=== PATIENT | male | born 1980 | race Two or more races ===

== ENCOUNTER 2024-03-28 08:10 | Day surgery (SDC) | payer MEDICAID, SELFPAY ==
[2024-03-27 14:52] VITALS: BMI 42.7
[2024-03-28] VITALS (8 sets, daily range): BP systolic 127–157; BP diastolic 84–104; PULSE 73–98; RESP 11–22; TEMP 36.3–36.6; O2SAT 95–100; BMI 40.8
[2024-03-28] MEDS: MIDAZOLAM INJ 1 MG/ML VIAL 2 ML (ASD USE ONLY) 2 MG IV (09:58)
[2024-03-28] MEDS: DiphenhydrAMINE INJ 50 MG/ML VIAL 25 MG IV (09:58)
[2024-03-28] MEDS: fentaNYL CIT INJ 50 mCg/ML AMP 2ML (ASD USE ONLY) IV (09:58)
--- NOTE | 2024-03-28 10:35 | SUR.PHASEII ---
PT'S FAMILY MEMBER DID NOT ANSWER THE PHONE TO STATE EPIDEMIOLOGIST THE PATIENT. WILL TRY AGAIN LATER
== END 2024-03-28 11:18 | disposition home or self-care (01) ==
PROVIDERS: PCP Family Medicine; Referring Provider Surgery; Visit Provider Surgery
PROC: 0DBE8ZX Excision of Large Intestine, Via Natural or Artificial Opening Endoscopic, Diagnostic (ICD-10-PCS; CPT 45380; principal; 2024-03-28 09:15)
DX: K57.31 Diverticulosis of large intestine without perforation or abscess with bleeding (principal)
CPT/HCPCS: 45378; J1200; J2250; J3010

== ENCOUNTER 2024-04-15 15:16 | Outpatient (AMB) | payer MEDICAID, SELFPAY ==
--- NOTE | 2024-04-15 14:58 | GSCOFFNT_ITS ---
Med/Allergies Allergies & Medications Allergies codeine Allergy (Mild, Verified 04/15/24 14:58) Rash Medication Reconciliation sitagliptin phosphate 50 mg-metformin 1,000 mg tablet (Janumet) 1 tab PO BID 01/21/21 [History Confirmed 04/15/24] losartan 50 mg tablet 25 mg PO QDAY 07/24/23 [History Confirmed 04/15/24] ascorbic acid (vitamin C) 1,000 mg tablet (Vitamin C) 1,000 mg PO QDAY 03/28/24 [History Confirmed 04/15/24] cholecalciferol (vitamin D3) 50 mcg (2,000 unit) capsule (Vitamin D3) 50 mcg PO QDAY 03/28/24 [History Confirmed 04/15/24] magnesium 250 mg tablet 250 mg PO QDAY 03/28/24 [History Confirmed 04/15/24] omeprazole 40 mg capsule,delayed release 40 mg PO QAMAC 03/28/24 [History Confirmed 04/15/24] pioglitazone 30 mg tablet 30 mg PO QDAY 03/28/24 [History Confirmed 04/15/24] zinc 50 mg tablet 50 mg PO QDAY 03/28/24 [History Confirmed 04/15/24] MA Intake Visit Data Collection New Patient or Established: Established Patient (seen at [facility] within 3 years) Seen by Clinical Staff ONLY (RN/MA): No Reason for Visit:: COLON RESULTS Pain Present Currently: No Pain scale:: 0 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 PCP or OBGYN visit in last 3 months: Yes Hx Now: No Do You Feel Safe at Home: Yes Authorities Contacted: N/A Smoking Status Smoking Status: Never smoker For Telemed visit only Telemed Video/Phone Visit: Yes Verbal consent obtained for Telemed visit?: Yes Immunization / Flu Flu Vaccine in the Last 12 Months: No Flu Vaccine Exclusion Criteria: No Exclusion Criteria Past Medical History Past Medical History NEUROLOGIC: Positive Neurological Disorders and Alfred's Palsy (2006); Negative Seizures CARDIAC: Positive Cardiac Disorders, Hypercholesterolemia and Hypertension; Negative Congestive Heart Failure, Edema or Cellulitis RESPIRATORY: Positive Sleep Apnea (DOESNT USE CPAP); Negative Chronic Obstructive Pulmonary Disease (COPD) GASTROINTESTINAL: Positive Gastrointestinal Disorders, Hepatitis (HEP A), Gall Bladder Disease, Gastroesophageal Reflux Disease and Obesity GENITOURINARY: Negative Genitourinary Disorders, Renal Disease or Kidney Stones MUSCULOSKELETAL: Positive Arthritis (RIGHT HIP) and Scoliosis ENDOCRINE: Positive Endocrine Disorders and Diabetes Mellitus Type 2; Negative Diabetes Mellitus Type 1 HEMATOLOGIC: Negative Blood Disorders OTHER HISTORY: Positive Chicken Pox; Negative Hospitalization, Autoimmune Disease, Shingles, Falls, Blood Transfusions, Anesthesia Reactions, Chemotherapy, Radiation Therapy, MRSA, Measles, Mumps or Cancer Family History FAMILY HISTORY: Positive Family Cardiac Disorders (MOTHER (CAD,HIGH CHOLESTEROL), FATHER (HTN)), Family Cancer (UNCLE - COLON CA) and Family Surgery (MOTHER, FATHER); Negative Family Psychiatric Problems, Family Respiratory Disorders, Family Gastrointestinal Problems or Family Anesthesia Reaction Surgical History SURGICAL: Negative Cardiac Surgery, Pacemaker, Endocrine Surgery, Neurologic Surgery or Vasectomy Social History SMOKING STATUS: Smoking status: Never smoker ALCOHOL: Alcohol Intake: Never HOUSING: Housing: House HPI HPI Narrative 43M with HTN, DMII, GERD, history of H. pylori who presented for diagnostic colonoscopy due to changes in bowel habits, who requested a phone visit for follow up. Pt reports feeling well overall, has no concerns after colonoscopy but does have episodes of upper abdominal discomfort which is chronic ROS Review of Systems Systems Reviewed: All systems reviewed, normal except as documented Objective/Exam General Limitations: other (limited by telephone visit) Results Colonoscopy report reviewed Assessment & Plan Diagnosis / Problem List (1) Encounter to discuss colonoscopy results: Status: Acute Assessment & Plan: 43M with HTN, DMII, GERD, history of H. pylori who presented for diagnostic colonoscopy due to changes in bowel habits, with findings of diverticulosis but otherwise normal. I encouraged pt to increase his water intake and initiate metamucil fiber, and to follow up with his PCP for consideration of EGD to evaluate his upper abdominal pain. All questions were answered and pt expressed understanding Office Procedures GNS Level of Care Nursing/Assessment Patient Status: Established Patient Nursing Assessment/Reassesment: Medication Reconciliation, Update PMH in EMR and Vital Signs Coordination of Care: Complex Care and Chronic Disease 1-5, Consent,records obtained, informed consent, Education Simp Pt/Fam, Results/Orders obtained and Staff clarify orders Established Patient Charge Established Patient Point Assignment: 90 Telehealth Telemed Phone/Video with patient at home & ,PA,SOFTWARE QUALITY ASSURANCE SPECIALIST: Yes Patient Portal Questionaires Social History Living Situation History Housing: House Tobacco History Smoking Status: Never smoker Alcohol History Alcohol Intake: Never Domestic Abuse History Do You Feel Safe at Home: Yes Review of Systems Report any current symptoms Only answer those that you have currently: Past Medical History Past Medical History Have you ever been diagnosed with any of the following: Neurological Problems Seizures: No Alfred's Palsy: Yes (2005) Cardiology Problems Hypercholesterolemia: Yes Congestive Heart Failure: No Edema: No Cellulitis: No Hypertension: Yes Respiratory Problems Chronic Obstructive Pulmonary Disease (COPD): No Sleep Apnea: Yes (DOESNT USE CPAP) Stomache/Intestinal Problems Hepatitis: Yes (HEP A) Gall Bladder Disease: Yes Gastroesophageal Reflux Disease: Yes Obesity: Yes Genital/Urinary Problems Renal Disease: No Kidney Stones: No Musculoskeletal Problems Arthritis: Yes (RIGHT HIP) Scoliosis: Yes Endocrine Problems Diabetes Mellitus Type 1: No Diabetes Mellitus Type 2: Yes Other Problems Hospitalization: No Autoimmune Disease: No Shingles: No Falls: No Blood Transfusions: No Anesthesia Reactions: No Chemotherapy: No Radiation Therapy: No MRSA: No Chicken Pox: Yes Measles: No Mumps: No Cancer: No Surgical History Pacemaker: No
== END 2024-04-15 15:21 | disposition home or self-care (01) ==
LOC: HODSRG 15:16
PROVIDERS: PCP Physician Assistant; Referring Provider Physician Assistant; Supervising Provider Surgery; Visit Provider Surgery
DX: Z71.2 Person consulting for explanation of examination or test findings (principal); K57.90 Diverticulosis of intestine, part unspecified, without perforation or abscess without bleeding
CPT/HCPCS: 99212; G0463

== ENCOUNTER 2024-06-01 09:14 | Emergency (ER) | payer MEDICAID, SELFPAY ==
[2024-06-01 09:40] VITALS: BP 169/117; BP 174/115; PULSE 84; RESP 18; TEMP 36.6; O2SAT 97; BMI 40.5
--- NOTE | 2024-06-01 09:47 | XR_ITS ---
Examination: CT abdomen with intravenous contrast CT pelvis with intravenous contrast 2-D coronal reconstructions 2-D sagittal reconstructions Date and time of exam:June 01, 2024 at 1123 hrs. Indications: Right upper abdominal pain today. CTDI: vol (mGy) 11.5 DLP: (mGycm) . 738 Technique: Multiple axial sections of the abdomen and pelvis have been obtained. 64 slice high-resolution scanner used. 3 mm axial sections have been obtained, post intravenous injection 60 cc [id number] 2-D sagittal, coronal reconstructions obtained. Low dose protocols were performed. One or more of the following dose reduction techniques were used; automated exposure control, adjustment of the mA and/or KV according to patient size, use of iterative reconstruction technique. Findings: Fatty infiltration throughout the liver No pancreatic splenic or adrenal mass lesion Edema involving the right kidney with no ureteral calculi most consistent with pyelonephritis No bowel obstruction Normal appendix Aorta normal size No bowel obstruction Impression: Findings most consistent with acute right pyelonephritis
--- NOTE | 2024-06-01 09:48 | PD.EDRME ---
Rapid Medical Screening Exam RME Arrival date/time: 06/01/24 09:14 43-year-old male presents to the emergency department with complaints of right lower quadrant pain that began this a.m. I have greeted and performed a focused initial assessment of this patient. Initial appropriate labs ordered at this time. A comprehensive ED assessment and evaluation of the patient and analysis of all test and completion of medical decision making process will be conducted by additional ED provider. Chief Complaint: Abdominal Pain Time Seen by Provider: 06/01/24 09:47 Vital signs: Vital Signs Temperature 97.9 F 06/01/24 09:40 Pulse Rate 84 06/01/24 09:40 Respiratory Rate 18 06/01/24 09:40 Blood Pressure 174/115 H 06/01/24 09:40 Pulse Oximetry (%) 97 06/01/24 09:40 Oxygen Delivery Method Room Air 06/01/24 09:40
[2024-06-01] MEDS: ACETAMINOPHEN 500 MG TABLET 1000 MG PO (09:52)
[2024-06-01 10:25] LABS: Collection Type, Urine Clean Catch
[2024-06-01 10:34] LABS: Basophils # (Auto) 0.1 Thou/mm3 (0.0-0.2); Basophils % (Auto) 1 % (0-2.5); Eosinophils # (Auto) 0.2 Thou/mm3 (0.0-0.5); Eosinophils % (Auto) 2 % (0-10); Hematocrit 53.8 % (41.0-53.0); Hemoglobin 18.3 g/dL (13.5-16.0); Immature Granulocytes % (Auto) 1 % (0-0); Lymphocytes # (Auto) 2.3 Thou/mm3 (1.0-4.8); Lymphocytes % (Auto) 25 % (10-50); Mean Corpuscular Hemoglobin 27.9 pg (25.0-35.0); Mean Corpuscular Volume 82 fL (80-100); Monocytes # (Auto) 0.7 Thou/mm3 (0.0-0.8); Monocytes % (Auto) 8 % (0-12); Neutrophils # (Auto) 5.6 Thou/mm3 (1.8-7.7); Neutrophils % (Auto) 62 % (37-80); Nucleated Red Blood Cell % 0 /100 WBC (0); Platelet Count 204 Thou/mm3 (140-440); RDW Standard Deviation 38.6 fL (35.1-43.9); Red Blood Count 6.56 Miln/mm3 (4.50-5.90); White Blood Count 8.9 Thou/mm3 (3.8-10.6)
[2024-06-01 10:43] LABS: Bilirubin,Urine Negative (Negative); Blood,Urine 1+ (Negative); Clarity,Urine Turbid (Clear/Hazy); Color,Urine Yellow (Lt Yel-Yel); Glucose, Urine 2+ (Negative); Ketones,Urine Negative (Negative); Leukocyte Esterase,Urine Negative (Negative); Nitrite,Urine Negative (Negative); Protein,Urine 2+ (Neg - Trace); RBC,Urine 4 /hpf (0-3); Squamous Epithelial Cell,Urine < 1 /hpf (0-5); Urobilinogen,Urine Negative mg/dL (0.0-1.0); WBC,Urine 2 /hpf (0-5)
[2024-06-01 10:44] LABS: Sperm,Urine Present
[2024-06-01 10:48] LABS: Alanine Aminotransferase 211 U/L (10-49); Albumin, Serum 4.5 gm/dL (3.5-5.0); Albumin/Globulin Ratio 1.6 (1.2-2.2); Alkaline Phosphatase 99 U/L (46-116); Anion Gap 10 (7-16); Aspartate Amino Transferase 85 U/L (0-34); BUN/Creatinine Ratio 17 Ratio (12-20); Bilirubin,Total 0.6 mg/dL (0.3-1.2); Blood Urea Nitrogen 20 mg/dL (9-23); Calcium 9.4 mg/dL (8.3-10.6); Calcium (Corrected) 9.4 mg/dL (8.5-10.1); Carbon Dioxide 24.6 mMol/L (20.0-31.0); Chloride 104 mMol/L (98-107); Creatinine (Component) 1.2 mg/dL (0.6-1.3); Estimated Creatinine Clearance 93.1 mL/min (>60); Globulin 2.9 gm/dL (2.3-3.5); Glucose 236 mg/dL (74-106); Lipase 42 U/L (12-53); Osmolality,Calculated 288 (275-295); Potassium 3.8 mMol/L (3.4-5.1); Sodium 139 mMol/L (136-145); Total Protein 7.4 gm/dL (5.7-8.2); eGFR > 60 See Note
[2024-06-01] MEDS: TAMSULOSIN HCL 0.4 MG CAPSULE PO (12:32)
[2024-06-01] MEDS: SODIUM CHLORIDE 0.9% 1000 ML 1,000 ML 999 ML IV (12:35)
--- NOTE | 2024-06-01 15:12 | PD.EDABDPN ---
ED Abdominal Pain RME/HPI General Chief Complaint: Abdominal Pain Stated complaint: RLQ ABDOMINAL PAIN SINCE 0600 Time seen by provider: 06/01/24 09:47 Arrival date/time: 06/01/24 09:14 RME / HPI RME / HPI narrative: 43-year-old male patient with significant history of diabetes mellitus, came in for evaluation regard right lower quadrant pain. Onset of symptoms since 6:00 this morning as sudden onset of right lower quadrant pain, described as dull ache, severity moderate. Patient denies any fever. Denies any vomiting denies any other complaints or medications taken prior to arrival. Related Data Home Medications ?Medication ?Instructions ?Recorded ?Confirmed sitagliptin phosphate 50 1 tab PO BID 01/21/21 04/15/24 mg-metformin 1,000 mg tablet (Janumet) losartan 50 mg tablet 25 mg PO QDAY 07/24/23 04/15/24 ascorbic acid (vitamin C) 1,000 mg 1,000 mg PO QDAY 03/28/24 04/15/24 tablet (Vitamin C) cholecalciferol (vitamin D3) 50 50 mcg PO QDAY 03/28/24 04/15/24 mcg (2,000 unit) capsule (Vitamin D3) magnesium 250 mg tablet 250 mg PO QDAY 03/28/24 04/15/24 omeprazole 40 mg capsule,delayed 40 mg PO QAMAC 03/28/24 04/15/24 release pioglitazone 30 mg tablet 30 mg PO QDAY 03/28/24 04/15/24 zinc 50 mg tablet 50 mg PO QDAY 03/28/24 04/15/24 Allergies Allergy/AdvReac Type Severity Reaction Status Date / Time codeine Allergy Mild Rash Verified 06/01/24 09:16 Review of Systems Review of Systems Narrative Review of Systems: Review of system reviewed and within normal limits except mentioned in HPI ED Exam Narrative Physical exam: VITAL SIGNS: Reviewed. GENERAL APPEARANCE: Alert and interactive, follows commands, no acute distress, HEAD AND FACE: Non-traumatic. ENT: PERRL, pink conjunctivitis, eyelid no trauma, Mucous membrane moist. NECK: Supple, nontender, no nuchal rigidity. CHEST: No tenderness, no crepitus, no paradoxical movement, no retractions. LUNGS: Clear, well ventilated, symmetric, no rales, no wheezing, no ronchi, no stridor, good breath sounds bilaterally. HEART: Regular rate, regular rhythm, no murmur, no gallops. ABDOMEN: Soft, positive bowel sounds, nondistended, no guarding, right lower quadrant tenderness, no rebound, no masses, RECTAL: Deferred. GENITAL: Deferred. NEUROLOGICAL: Gross motor function intact sensory function intact, Appropriate for age. MUSCULOSKELETAL: low back nontender, full range of motion. EXTREMITIES: Nontender, full range of motion. SKIN: Color pink, dry, no rash, no lacerations, no abrasions, no contusions. LYMPHATICS: Deferred. Course Quality Measures none Orders Category Date Time Status CT Screening NOW Care 06/01/24 09:[address] abdomen pelvis w con Stat Exams 06/01/24 09:47 Completed CBC Stat Lab 06/01/24 10:13 Completed Comprehensive Metabolic Panel Stat Lab 06/01/24 10:13 Completed Lipase Stat Lab 06/01/24 10:13 Completed Urinalysis Stat Lab 06/01/24 10:15 Completed Acetaminophen Tab [Tylenol ES Tab] Med 06/01/24 09:47 Discontinued 1,000 mg PO X1 ONE Sodium Chloride 0.9% 1000 ml [Ns] 1,000 ml Med 06/01/24 12:20 Discontinued IV 999 mls/hr Tamsulosin HCl [Flomax] Med 06/01/24 12:21 Discontinued 0.4 mg PO X1 ONE Vital Signs Vital signs: Vital Signs Temperature 97.9 F 06/01/24 09:40 Pulse Rate 84 06/01/24 09:40 Respiratory Rate 18 06/01/24 09:40 Blood Pressure 174/115 H 06/01/24 09:40 Pulse Oximetry (%) 97 06/01/24 09:40 Oxygen Delivery Method Room Air 06/01/24 09:40 Abdominal Pain MDM MDM Narrative MDM Narrative:: 43-year-old male patient with significant history of diabetes mellitus, came in for evaluation regard right lower quadrant pain. Onset of symptoms since 6:00 this morning as sudden onset of right lower quadrant pain, described as dull ache, severity moderate. Patient denies any fever. Denies any vomiting denies any other complaints or medications taken prior to arrival. Patient's workup today all came back normal including CT scan of the abdomen and pelvis no appendicitis except for possible pyelonephritis however patient is not having any flank pain no leukocytosis and urinalysis no UTI. Results discussed with the patient. Patient appears nontoxic and hemodynamically stable. Patient discharged home and instructed to follow-up with primary care provider in 24 to 48 hours. Instructed to return to the emergency department immediately if worsening of symptoms Patient data External records reviewed:: None Clinical information provided by:: patient Social determinants that could affect healthcare access:: none Patient has the following chronic illnesses:: Diabetes mellitus How is presenting disease/condition affected by chronic disease/condition?: exacerbated by Evaluation data The following diagnostics were reviewed and interpreted by me:: lab results and radiology exam(s) Lab and/or radiology exams considered but not ordered:: None Interpretation Summary: See results in MDM Medications / Prescriptions Medications or Prescriptions considered but not ordered:: None Medication administrations:: Medication Administration History Discontinued Medications Acetaminophen (Acetaminophen 500 Mg Tablet) 1,000 mg PO X1 ONE Stop: 06/01/24 09:48 Last Admin: 06/01/24 09:52 Dose: 1,000 mg Documented By: GIOVANA Sodium Chloride (Ns) 1,000 mls @ 999 mls/hr IV .Q1H1M ONE Stop: 06/01/24 13:20 Last Infusion: 06/01/24 13:45 Dose: Infused Documented By: Admin: 06/01/24 12:35 Dose: 999 mls/hr Documented By: WALI Tamsulosin HCl (Tamsulosin Hcl 0.4 Mg Capsule) 0.4 mg PO X1 ONE Stop: 06/01/24 12:22 Last Admin: 06/01/24 12:32 Dose: 0.4 mg Documented By: WALI Flomax IV fluids and Tylenol Consultations Consultation(s) initiated? (list below): No Diagnosis Differential diagnosis abdominal pain: abdominal pain, acute appendicitis and calculus of kidney Most likely diagnosis given after review of the tests above:: Abdominal pain Admission Indicated Admission indicated?: not indicated Admission Request Was there a request for admission?: No Disposition Plan Disposition Plan: Discharge Discharge Attestation Discharge Attestation: The patient and all family members were given an opportunity to ask questions and understood the discharge instructions. Discharge instructions specifically effects, indications for sooner follow up or return to the emergency department, and the expected course of current diagnosis. Patient condition: Stable Discharge Plan Plan Patient Disposition: HOME (Self Care) Disposition Comment: Stable Prescriptions/Referrals Prescriptions/Med Rec: No Action losartan 50 mg tablet 25 mg PO QDAY Janumet 50-1,000 mg Tablet 1 tab PO BID ascorbic acid (vitamin C) [Vitamin C] 1,000 mg Tablet 1,000 mg PO QDAY omeprazole 40 mg capsule,delayed release(DR/EC) 40 mg PO QAMAC Patient Comments: TAKE 1 CAPSULE BY MOUTH EVERY DAY 30 MINUTES BEFORE MORNING MEAL zinc 50 mg Tablet 50 mg PO QDAY magnesium 250 mg Tablet 250 mg PO QDAY pioglitazone 30 mg tablet 30 mg PO QDAY Patient Comments: TAKE 1 TABLET BY MOUTH EVERY DAY cholecalciferol (vitamin D3) [Vitamin D3] 50 mcg (2,000 unit) Capsule 50 mcg PO QDAY Referrals: Jewel Colindres MD [Primary Care Provider] - In 1 week Problem List Clinical Impression: Abdominal pain Patient/Caregiver Discharge Instructions Discharge Activity: activity as tolerated Education Materials: Abdominal Pain Additional Instructions: Thank you for the opportunity for serving you today. You are stable for discharged . You are advised to: Follow-up with your PCP in 1 to 2 days Return to ED for worsening of symptoms Increase oral fluids Print Language: Montserratian Stand Alone Forms: Rosamaria Award Info., Patient Portal Info Letter PA/ARABELLA Supervising Physician TAMARA/ARABELLA Supervising Physician: Vandana
== END 2024-06-01 15:50 | disposition home or self-care (01) ==
PROVIDERS: Nurse Practitioner Primary Care; Emergency Provider Emergency Medicine; PCP Family Medicine
DX: R10.31 Right lower quadrant pain (principal); E11.9 Type 2 diabetes mellitus without complications
CPT/HCPCS: 36415; 74177; 80053; 81001; 83690; 85025; 96360; 99285; A4649; J7030; Q9967; A9270

== ENCOUNTER 2025-02-11 22:24 | Emergency (ER) | payer MEDICAID, SELFPAY ==
[2025-02-11 22:25] VITALS: BMI 40.3
--- NOTE | 2025-02-11 22:28 | EKG_ITS ---
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
[2025-02-11 22:37] VITALS: BP 178/122; PULSE 98; RESP 18; TEMP 36.8; O2SAT 97
--- NOTE | 2025-02-11 22:40 | XR_ITS ---
EXAMINATION: PA chest single view TECHNIQUE: Upright PA chest single view Date and time: February 11, 2025, 1108 hours INDICATIONS: Chest tightness beginning 1 hour ago FINDINGS: Normal heart size Lungs are clear. Osseous structures are intact IMPRESSION: No active disease
--- NOTE | 2025-02-11 22:40 | PD.EDRME ---
Rapid Medical Screening Exam RME Arrival date/time: 02/11/25 22:24 Chief Complaint: Chest Pain Time Seen by Provider: 02/11/25 22:32 Vital signs: Vital Signs Temperature 98.2 F 02/11/25 22:37 Pulse Rate 98 02/11/25 22:37 Respiratory Rate 18 02/11/25 22:37 Blood Pressure 178/122 H 02/11/25 22:37 Pulse Oximetry (%) 97 02/11/25 22:37 Oxygen Delivery Method Room Air 02/11/25 22:37 RME Narrative: Chest tightness x1 hour. 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 Hx DM, HTN. Exam: Well-appearing, no acute distress Clinical Impression: Chest tightness
[2025-02-11 23:13] LABS: Basophils # (Auto) 0.1 Thou/mm3 (0.0-0.2); Basophils % (Auto) 1 % (0-2.5); Eosinophils # (Auto) 0.2 Thou/mm3 (0.0-0.5); Eosinophils % (Auto) 3 % (0-10); Hematocrit 49.9 % (41.0-53.0); Hemoglobin 16.5 g/dL (13.5-16.0); Immature Granulocytes Auto 0.04 Thou/mm3 (0.00-0.00); Lymphocytes # (Auto) 2.7 Thou/mm3 (1.0-4.8); Lymphocytes % (Auto) 33 % (10-50); Mean Corpuscular HGB Conc 33.1 g/dl (31.0-37.0); Mean Corpuscular Hemoglobin 28.2 pg (25.0-35.0); Mean Corpuscular Volume 85 fL (80-100); Monocytes # (Auto) 0.7 Thou/mm3 (0.0-0.8); Monocytes % (Auto) 8 % (0-12); Neutrophils # (Auto) 4.5 Thou/mm3 (1.8-7.7); Neutrophils % (Auto) 55 % (37-80); Nucleated Red Blood Cell # 0.00 Thou/mm3 (0.00-0.00); Nucleated Red Blood Cell % 0 /100 WBC (0); Platelet Count 171 Thou/mm3 (140-440); RDW Standard Deviation 40.3 fL (35.1-43.9); Red Blood Count 5.86 Miln/mm3 (4.50-5.90); White Blood Count 8.3 Thou/mm3 (3.8-10.6)
[2025-02-11 23:29] LABS: B-Type Natriuretic Peptide < 20 pg/mL (0-100)
[2025-02-11 23:31] LABS: Alanine Aminotransferase 134 U/L (10-49); Albumin, Serum 4.7 gm/dL (3.5-5.0); Albumin/Globulin Ratio 2.2 (1.2-2.2); Alkaline Phosphatase 144 U/L (46-116); Anion Gap 10 (7-16); Aspartate Amino Transferase 62 U/L (0-34); BUN/Creatinine Ratio 10 Ratio (12-20); Bilirubin,Total 0.2 mg/dL (0.3-1.2); Blood Urea Nitrogen 11 mg/dL (9-23); Calcium 9.7 mg/dL (8.3-10.6); Calcium (Corrected) 9.7 mg/dL (8.5-10.1); Carbon Dioxide 29.1 mMol/L (20.0-31.0); Chloride 102 mMol/L (98-107); Creatinine (Component) 1.1 mg/dL (0.6-1.3); Estimated Creatinine Clearance 100.3 mL/min (>60); Globulin 2.1 gm/dL (2.3-3.5); Glucose 322 mg/dL (74-106); Osmolality,Calculated 292 (275-295); Potassium 4.2 mMol/L (3.4-5.1); Sodium 141 mMol/L (136-145); Total Protein 6.8 gm/dL (5.7-8.2); Troponin I < 0.020 ng/mL (0.0-0.045); eGFR > 60 See Note
[2025-02-12 01:04] LABS: Troponin I < 0.020 ng/mL (0.0-0.045)
[2025-02-12 01:17] VITALS: BP 174/120; PULSE 83; RESP 18; TEMP 36.3; O2SAT 97
[2025-02-12 01:23] VITALS: BP 156/114
--- NOTE | 2025-02-12 01:26 | PD.EDCHEST ---
ED Chest Pain RME/HPI General Chief Complaint: Chest Pain Stated Complaint: CHEST THIGHTNESS, HARD TO TAKE DEEP BREATH Time Seen by Provider: 02/11/25 22:32 Source: patient and old records reviewed Arrival date/time: 02/11/25 22:24 Mode of arrival: ambulatory Limitations: no limitations RME / HPI RME / HPI narrative: 44yom presents to ED for left sided chest heaviness and mild shortness of breath that initiated 1-2 hours prior to ED arrival. Patient was watching a movie at time of symptom onset. BP elevated at ED arrival, patient states he forgot to take his BP medication today. Losartan 25mg taken 15 minutes ago. No palpitations, LE edema, dizziness or syncope reported. Patient states symptoms are gradually improving. Related Data Home Medications ?Medication ?Instructions ?Recorded ?Confirmed sitagliptin phosphate 50 1 tab PO BID 01/21/21 04/15/24 mg-metformin 1,000 mg tablet (Janumet) losartan 50 mg tablet 25 mg PO QDAY 07/24/23 04/15/24 ascorbic acid (vitamin C) 1,000 mg 1,000 mg PO QDAY 03/28/24 04/15/24 tablet (Vitamin C) cholecalciferol (vitamin D3) 50 50 mcg PO QDAY 03/28/24 04/15/24 mcg (2,000 unit) capsule (Vitamin D3) magnesium 250 mg tablet 250 mg PO QDAY 03/28/24 04/15/24 omeprazole 40 mg capsule,delayed 40 mg PO QAMAC 03/28/24 04/15/24 release pioglitazone 30 mg tablet 30 mg PO QDAY 03/28/24 04/15/24 zinc 50 mg tablet 50 mg PO QDAY 03/28/24 04/15/24 Allergies Allergy/AdvReac Type Severity Reaction Status Date / Time codeine Allergy Mild Rash Verified 02/11/25 22:25 Review of Systems Review of Systems Systems Reviewed: All systems reviewed, normal except as documented Constitutional Constitutional: Denies chills, Denies fever(s) and Denies headache(s) ENT Ears, Nose, Mouth, and Throat: Denies dizziness and Denies headache(s) Cardiovascular Cardiovascular: Reports chest pain, Reports dyspnea, Denies lightheadedness, Denies palpitations and Denies syncope Respiratory Respiratory: Reports dyspnea Gastrointestinal Gastrointestinal: Denies nausea and Denies vomiting Neurologic Neurologic: Denies dizziness, Denies headache(s) and Denies syncope Endocrine Endocrine: Denies palpitations Past Medical History Past Medical History CARDIAC: Positive Hypertension GASTROINTESTINAL: Positive Obesity ENDOCRINE: Positive Diabetes Mellitus Type 2 Social History SMOKING STATUS: Never smoker SUBSTANCE USE: does not use ALCOHOL: Never Travel History EBOLA RISK: No ED Exam General Limitations: Present no limitations General appearance: Present alert and in no apparent distress Head Head exam: Present atraumatic and normocephalic Eye Eye exam: Present normal appearance, PERRL and EOMI ENT ENT exam: Present normal exam and mucous membranes moist Neck Neck exam: Present normal inspection and full ROM Chest Chest inspection: Present normal inspection and symmetric chest wall rise Respiratory Respiratory exam: Present normal lung sounds bilaterally; Absent respiratory distress Cardiovascular Cardiovascular exam: Present regular rate and normal rhythm Extremities Exam Extremities exam: Present normal inspection and full ROM; Absent pedal edema Neurological Exam Neurological exam: Present alert and oriented X3 Psychiatric Psychiatric exam: Present normal affect and normal mood Skin Skin exam: Present warm, dry, intact and normal color Course Quality Measures none Orders Category Date Time Status EKG (ED ONLY) *Do not use* NOW Care 02/11/25 22:28 Completed CXR [XR chest 1V] Stat Exams 02/11/25 22:40 Completed EKG (ED Only) Stat Exams 02/11/25 22:28 Draft BNP [B-Type Natriuretic Peptide] Stat Lab 02/11/25 22:54 Completed CBC Stat Lab 02/11/25 22:54 Completed CMP [Comprehensive Metabolic Panel] Stat Lab 02/11/25 22:54 Completed Troponin I Stat Lab 02/11/25 22:54 Completed Troponin I Stat Lab 02/12/25 00:36 Completed Vital Signs Vital signs: Vital Signs Temperature 98.2 F 02/11/25 22:37 Pulse Rate 98 02/11/25 22:37 Respiratory Rate 18 02/11/25 22:37 Blood Pressure 178/122 H 02/11/25 22:37 Pulse Oximetry (%) 97 02/11/25 22:37 Oxygen Delivery Method Room Air 02/11/25 22:37 PROCEDURES: EKG Interpretation #1: Date of EK02/11/25 Time of EK:43 Rate: 98 EKG Impression: Normal sinus rhythm, No acute ST-T changes, No ectopy, No ischemic changes, Normal QRS, Normal intervals and Normal axis Chest Pain MDM Narrative MDM Narrative:: 44yom presents to ED for left sided chest heaviness and mild shortness of breath that initiated 1-2 hours prior to ED arrival. Patient was watching a movie at time of symptom onset. BP elevated at ED arrival, patient states he forgot to take his BP medication today. Losartan 25mg taken 15 minutes ago. No palpitations, LE edema, dizziness or syncope reported. Patient states symptoms are gradually improving. ED cardiac workup reassuring. Patient is well-appearing, vitals are stable, blood pressure downtrending without intervention. Patient is chest pain free and asymptomatic at time of discharge. Heart score of 2. Encouraged close follow-up with PCP for BP and DM management. Stable for discharge, RTED precautions given. Patient data External records reviewed:: [facility] previous records (06/01/2024 ED visit for abdominal pain) Clinical information provided by:: patient Social determinants that could affect healthcare access:: none Patient has the following chronic illnesses:: HTN, obesity How is presenting disease/condition affected by chronic disease/condition?: exacerbated by Evaluation data The following diagnostics were reviewed and interpreted by me:: lab results, radiology exam(s) and EKG tracing(s) Lab and/or radiology exams considered but not ordered:: CTA chest: Do not suspect PE at this time Interpretation Summary: No leukocytosis No anemia Negative troponin x2 Hyperglycemia, glucose 322 CXR: No acute process per my read Medications / Prescriptions Medications or Prescriptions considered but not ordered:: None Medication administrations:: None Consultations Consultation(s) initiated? (list below): No Diagnosis Chest Pain Differential Diagnosis: pneumothorax, stable angina, atypical chest pain, st elevation myocardial infarction, costochondritis and chest pain Most likely diagnosis given after review of the tests above:: Chest pain, elevated blood pressure reading with established hypertension Admission Indicated Admission indicated?: not indicated Admission Request Was there a request for admission?: No Disposition Plan Disposition Plan: Discharge Discharge Attestation Discharge Attestation: The patient and all family members were given an opportunity to ask questions and understood the discharge instructions. Discharge instructions specifically effects, indications for sooner follow up or return to the emergency department, and the expected course of current diagnosis. Patient condition: Stable Discharge Plan Plan Patient Disposition: HOME (Self Care) Patient condition on transfer: Stable Prescriptions/Referrals Prescriptions/Med Rec: No Action losartan 50 mg tablet 25 mg PO QDAY Janumet 50-1,000 mg Tablet 1 tab PO BID ascorbic acid (vitamin C) [Vitamin C] 1,000 mg Tablet 1,000 mg PO QDAY omeprazole 40 mg capsule,delayed release(DR/EC) 40 mg PO QAMAC Patient Comments: TAKE 1 CAPSULE BY MOUTH EVERY DAY 30 MINUTES BEFORE MORNING MEAL zinc 50 mg Tablet 50 mg PO QDAY magnesium 250 mg Tablet 250 mg PO QDAY pioglitazone 30 mg tablet 30 mg PO QDAY Patient Comments: TAKE 1 TABLET BY MOUTH EVERY DAY cholecalciferol (vitamin D3) [Vitamin D3] 50 mcg (2,000 unit) Capsule 50 mcg PO QDAY Referrals: Jewel Colindres MD [Primary Care Provider, Family Practice] - In 1 week Problem List Clinical Impression: Chest pain, Elevated blood pressure reading with diagnosis of hypertension, Hyperglycemia Patient/Caregiver Discharge Instructions Education Materials: ED Chest Pain, Uncertain Cause, ED Hypertension, Established Print Language: Frisian Stand Alone Forms: Rosamaria Award Info., Work/School Release, Patient Portal Info Letter PA/SECURITY SPECIALIST Supervising Physician PA/SECURITY SPECIALIST Supervising Physician: Alin
== END 2025-02-12 01:34 | disposition home or self-care (01) ==
PROVIDERS: Physician Assistant; Emergency Provider Emergency Medicine; PCP Family Medicine
DX: R07.9 Chest pain, unspecified (principal)
CPT/HCPCS: 36415; 71045; 80053; 83880; 84484; 85025; 93005; 99283